=== PATIENT | male | born 1980 | race Caucasian/White ===

== ENCOUNTER 2016-11-06 02:56 | Emergency (ER) | payer OTHER ==
[~2016-11-06] VITALS: Ht 175.3 cm; Wt 179.3 kg
[~2016-11-06 02:56] MED LIST: CEFU500T PO; IBUP-1827 PO; TRAM50TA2 PO
[2016-11-06 02:57] VITALS: BP 188/113; PULSE 91; RESP 16; O2SAT 98
--- NOTE | 2016-11-06 03:05 | ED.REPORT ---
HPI-General Illness Date of Service November 06, 2016 ED Provider: Claudio Nunez MD A 36 year old male with a history of asthma, smoking and episodes of similar symptoms presents to the ED due to a syncopal episode. The pt was eating at home at approximately 00:00 when he took a bite and suddenly felt that he could not breathe. He then experienced a syncopal episode and woke up on the floor with an abrasion on his forehead. The pt has experienced similar symptoms before when he was not eating. He also admits to a persistent cough for several months but denies shortness of breath with exertion. Nursing Notes Stated Complaint: DIFFICULTY BREATHING Chief Complaint: Neuro Symptoms/ Deficits Nursing Notes Reviewed: Yes Allergies: Coded Allergies: amoxicillin (Verified Allergy, Unknown, 03/01/14) ampicillin (Verified Allergy, Unknown, 03/01/14) Scheduled Cefuroxime Axetil (Ceftin) 500 Mg Tablet 500 MG PO BID Scheduled PRN Ibuprofen (Ibuprofen) 600 Mg Tablet 600 MG PO QID PRN PRN For Pain Ondansetron ODT (Ondansetron ODT) 8 Mg Tab.rapdis 8 MG PO QID PRN PRN For Nausea Tramadol (Tramadol) 50 Mg Tablet 100 MG PO Q6H PRN PRN For Pain General Time Seen by MD: 03:04 Chief Complaint Other (Syncope) Hx Obtained From: Patient Arrived By: Walk-in Sudden in Onset?: Yes Onset Occurred: 1 - 4 hours ago Recent Healthcare: No recent hospitalization, Recent doctor visit Similar Sx Previous: Yes Past Medical History Past Medical History Reports: Asthma Past Surgical History none reported Smoking History Current Every Day Smoker Social History Alcohol Use: Denies alcohol use Drug Use: THC Other Social History: Good social support, Occupation lives with and kids, not employed currently Ambulatory Status Independent Review of Systems difficulty breathing Full Review of Systems Respiratory: Reports: Prod cough, clear, Denies: Dyspnea on exertion Cardiovascular: Denies: Chest pain GI: Denies: Abdominal pain Skin: Denies Rash Neurologic: Reports: Syncope Complete sys rev & neg: except as marked. Physical Exam Vital Signs Vital Signs Date Time Temp Pulse Resp B/P Pulse Ox O2 Delivery O2 Flow Rate FiO2 11/06/16 04:58 84 16 148/76 95 Room Air 11/06/16 04:46 11/06/16 02:57 36.9 91 16 188/113 98 Room Air Initial VS: Reviewed General/Constitutional: Awake, Alert Appearance / Presentation: Positive: Obese, morbidly Head / Eyes: Normocephalic, PERRL, EOMI abrasion on right frontal forehead ENT: Atraumatic, Airway patent, Mucous membranes moist Neck: Atraumatic, Supple, Full range of motion Respiratory / Chest: Atraumatic, Breath sounds NL, Breath sounds = bilat, No respiratory distress Cardiovascular: Heart rate NL, Regular rhythm, Heart sounds NL Abdomen: Atraumatic, Soft, Non-tender Back: Atraumatic, Full range of motion Upper Extremities Upper Extremity / MS: Atraumatic, Full range of motion Lower Extremity / Pelvis / MS: Atraumatic, Full range of motion Skin: Color NL, No rash, Warm, Dry Neurologic: Oriented X3, Speech NL, No motor deficits, No sensory deficits Psychiatric: Affect NL, Mood NL Interpretation & Diagnostics Interpretation & Diagnostics: CT Pulmonary Angiogram: CONCLUSION: Suboptimal opacification of the pulmonary arterial system. No CT evidence of central PE. Lab Results Interpretation Result Diagram: 11/06/16 0320 11/06/16 0320 Test 11/06/16 03:20 White Blood Count 11.3th/mm3 (3.8-10.1) Red Blood Count 4.57mil/mm3 (4.40-5.80) Hemoglobin 13.2g/dL (13.8-17.2) Hematocrit 39.4% (41.0-50.0) Mean Corpuscular Volume 86.2fL (81-100) Mean Corpuscular Hemoglobin 28.9pg (27.0-35.0) Mean Corpuscular Hemoglobin Concent 33.5% (32.0-37.0) Red Cell Distribution Width 13.8% (12.3-15.4) Platelet Count 193bil/L (150-400) Neutrophils (%) (Auto) 68.9% (40-74) Lymphocytes (%) (Auto) 23.0% (14-46) Monocytes (%) (Auto) 6.7% (4-12) Eosinophils (%) (Auto) 0.6% (0-5) Basophils (%) (Auto) 0.4% (0-3) Prothrombin Time 10.6sec (8.1-12.5) Prothromb Time International Ratio 0.99ratio Activated Partial Thromboplast Time 25.1sec (22.8-33.0) Sodium Level 140mEq/L (134-144) Potassium Level 3.9mEq/L (3.5-5.2) Chloride Level 101mEq/L (97-108) Carbon Dioxide Level 24mmol/L (18-29) Blood Urea Nitrogen 16mg/dL (6-20) Creatinine 0.74mg/dL (0.76-1.27) Estimat Glomerular Filtration Rate 127mL/min (>59) Glucose Level 103mg/dL (60-99) Calcium Level 9.1mg/dL (8.5-10.1) Magnesium Level 2.0mg/dL (1.6-2.6) Total Bilirubin 0.4mg/dL (0.0-1.2) Aspartate Amino Transf (AST/SGOT) 26U/L (0-50) Alanine Aminotransferase (ALT/SGPT) 39U/L (0-44) Alkaline Phosphatase 48U/L (25-150) Troponin T 0.010ug/L (0.0-0.011) Pro-B-Type Natriuretic Peptide 116.8pg/mL (0-86) Total Protein 7.0g/dL (6.4-8.4) Albumin 4.1g/dL (3.4-5.0) ECG Interpretation ECG Interpretation: normal sinus rhythm with a rate of 81 incomplete RBBB Time: 03:15 Interpreted by: ED physician X-Ray Chest Interpretation Chest Xray Interpretation: no acute findings Interpretation / Wet Read by: Wet read ED physician CT Head Interpretation IMPRESSION: No CT evidence of hemorrhage, mass, or acute infarct. Interpretation / Wet Read by: Interpret - Radiologist CT C-Spine Interpretation CONCLUSION: No CT evidence of fracture or dislocation. Interpretation / Wet Read by: Interpret - Radiologist Re-Eval/Medical Decision Med Decision/Clinical Course Syncopal episode of unclear etiology. May have been a choking episode, but he has had several similar episodes without explanation the past. He said he felt short of breath and this prompted a CT angiogram, which does not show a large scale embolus. Cannot exclude secondary and tertiary emboli, but a large scale syncope producing embolus is not found. EKG is unremarkable and labs are otherwise reassuring. Discharged home in stable condition. CT of head and neck are negative. First date applied to abrasion on the right forehead. Source of Hx: Old records Time of Eval: 05:28 Patient Status: Condition improved Re-Evaluation/Progress Note: Pt rechecked, who is resting comfortably. The diagnosis and plan for discharge are discussed. The pt understands and agrees with the plan. All questions are addressed at this time. Counseled Regarding: Diagnosis, Lab results, Need for follow-up, When/why to return to ED Discharge & Departure Primary Impression: Syncope Additional Impressions: Blunt head injury Contusion of forehead Disposition: Home Discharge Condition All VS Reviewed: Yes Condition: Stable Patient Instructions: Head Injury (ED), Syncope (ED) Additional Instructions: There is no evidence of clot in your lung. Your CT of head and neck are negative for acute injury. Your labs are also reassuring. Follow-up with your doctor in the office. Return for any recurrent episodes of fainting or other new symptoms of concern. Call your doctor today for follow-up in this next week. Referrals: Shahriar Westbrook MD (PCP) Giannaibe Attestation Portions of this note were transcribed by Gia Sena. I, Dr. Nunez personally performed the history, physical exam and medical decision-making; I reviewed and confirmed the accuracy of the information in the transcribed note. Signed by: Amparo Dolan, 11/06/16 and 0529. copies to: Shahriar Westbrook MD, Christopher W MD November 06, 2016 03:05 GAI SENA November 06, 2016 03:41
[2016-11-06] MEDS ORDERED: 0.9% Sodium Chloride 1,000 ML IV ONE (03:09)
[2016-11-06 03:33] LABS: BASOPHILS % (AUTO) 0.4 % (0-3); EOSINOPHILS % (AUTO) 0.6 % (0-5); MONOCYTES % (AUTO) 6.7 % (4-12); Mean Corpuscular Hemoglobin 28.9 pg (27.0-35.0); Mean Corpuscular Volume 86.2 fL (81-100); NEUTROPHILS % (AUTO) 68.9 % (40-74); Platelet Count 193 bil/L (150-400)
[2016-11-06 03:46] LABS: INR 0.99 ratio
[2016-11-06 04:03] LABS: TROPONIN T 0.01 ug/L (0.0-0.011)
[2016-11-06 04:46] VITALS: BP 138/69; PULSE 78; RESP 16; O2SAT 97
[2016-11-06 04:58] VITALS: BP 148/76; PULSE 84; RESP 16; O2SAT 95
[2016-11-06] MEDS ORDERED: ONDA8TAB10 PO (05:26)
--- NOTE | 2016-11-06 08:18 | DRSVH ---
PROCEDURE: X-RAY CHEST ONE VIEW, PORTABLE ([id number]) INDICATIONS: syncope, SHORT OF BREATH TECHNIQUE: One view of the chest was acquired. COMPARISON: None. FINDINGS: Surgical changes and devices: None. Lungs and pleura: No pleural effusions or pneumothorax. Lungs are clear. Mediastinum: Mediastinal contours appear normal. Heart size is normal. Bones and chest wall: No suspicious bony lesions. Overlying soft tissues appear unremarkable. IMPRESSION: No acute disease Dictated by: Mike Coles M.D. on 11/06/2016 at 8:16 Approved by: Mike Coles M.D. on 11/06/2016 at 8:16
--- NOTE | 2016-11-06 09:04 | DRSVH ---
PROCEDURE: CT ANGIO CHEST PULMONARY EMBOLISM ([id number]) INDICATIONS: fall, syncope frontal head injury TECHNIQUE: After the administration of intravenous contrast, 2 mm thick sections acquired from the pulmonary api bernie to the posterior costophrenic angles. 3-dimensional maximum intensity projection (MIP) coronal a nd sagittal reformats were then acquired through the thorax. For radiation dose reduction, the follo wing was used: automated exposure control, adjustment of mA and/or kV according to patient size. COMPARISON: None. FINDINGS: Image quality: Limited by patient body habitus and suboptimal contrast opacification of the segmental and subsegmental pulmonary arteries. Pulmonary arteries: Pulmonary arteries are normal in size, and demonstrate no intraluminal filling d efects to suggest central pulmonary embolism. Lungs and pleura: Lungs are clear. No pleural effusions or pneumothorax. Central and peripheral ai rways are patent. Mediastinum: Heart size is normal, without pericardial effusion. No mediastinal or hilar adenopathy . Thoracic aorta is normal in caliber and enhancement. Esophagus is normal in caliber, without hiat al hernia. Bones and chest wall: No suspicious bony lesions. Ribs and thoracic spine appear intact throughout. Spine degenerative disc disease and facet arthropathy. Thyroid gland is within normal limits where visualized. No axillary or supraclavicular adenopathy. Abdomen: Gallstones noted in the gallbladder. Visualized upper abdominal solid organs appear normal in the early arterial phase of enhancement. IMPRESSION: 1. No large central pulmonary embolus. Please note pulmonary emboli involving the segmental and subse gmental pulmonary arteries cannot be completely excluded secondary to suboptimal opacification. 2. Cholelithiasis. Final interpretation is concordant with preliminary interpretation. Dictated by: Lashanda Calderon MD, PhD on 11/06/2016 at 8:59 Approved by: Lashanda Calderon MD, PhD on 11/06/2016 at 9:02
--- NOTE | 2016-11-06 09:06 | DRSVH ---
PROCEDURE: CT BRAIN WITHOUT CONTRAST ([id number]) INDICATIONS: fall, syncope frontal head injury TECHNIQUE: Noncontrast 4.5 mm thick angled axial sections acquired from the foramen magnum to the vertex, with c oronal reformats. COMPARISON: None. FINDINGS: Image quality: Excellent. CSF spaces: Basal cisterns are patent. No extra-axial fluid collections. Ventricles are normal in size and shape. Brain: No midline shift. No intracranial masses or hemorrhage. [place]-white matter interface is norm al. Skull and face: Calvarium and visualized facial bones are intact, without suspicious lesions. Small right occipital scalp hematoma is noted. Sinuses: Mucosal thickening noted in the visualized maxillary sinuses bilaterally. The mastoids are c lear. IMPRESSION: No acute intracranial disease process. Final interpretation is concordant with preliminary interpretation. Dictated by: Lashanda Calderon MD, PhD on 11/06/2016 at 9:02 Approved by: Lashanda Calderon MD, PhD on 11/06/2016 at 9:04
--- NOTE | 2016-11-06 09:10 | DRSVH ---
PROCEDURE: CT CERVICAL SPINE WITHOUT CONTRAST ([id number]) INDICATIONS: fall, syncope frontal head injury TECHNIQUE: Noncontrast 3 mm thick sections acquired from the skull base to the T4 level. Sagittal and coronal r eformats were then constructed. For radiation dose reduction, the following was used: automated exp osure control, adjustment of mA and/or kV according to patient size. COMPARISON: [facility], CT, CT BRAIN WO CON, 11/06/2016, 4:37. FINDINGS: Image quality: Limited by patient motion artifact and patient body habitus. Bones: No fractures or dislocations. Visualized superior ribs are intact. Multilevel degenerative d isc disease and facet arthropathy are noted. Soft tissues: Prevertebral soft tissues are normal in thickness. No paravertebral hematomas. No ap ical pneumothoraces. IMPRESSION: No fracture within the limitations caused by motion artifact and patient body habitus. N o acute osseous lesion within limitations caused by motion artifact and patient body habitus. If symp toms and/or clinical suspicion for pathology persists, evaluation with MRI may be helpful for further assessment. Dictated by: Lashanda Calderon MD, PhD on 11/06/2016 at 9:04 Approved by: Lashanda Calderon MD, PhD on 11/06/2016 at 9:08
== END 2016-11-06 05:41 | disposition home or self-care (01) ==
LOC: SED 02:56
DX: R55 Syncope and collapse (principal); S00.83XA Contusion of other part of head, initial encounter; W01.198A Fall on same level from slipping, tripping and stumbling with subsequent striking against other object, initial encounter; Y93.89 Activity, other specified; Y92.009 Unspecified place in unspecified non-institutional (private) residence as the place of occurrence of the external cause; Y99.8 Other external cause status; R05 Cough; F17.200 Nicotine dependence, unspecified, uncomplicated; J45.909 Unspecified asthma, uncomplicated; Z88.0 Allergy status to penicillin; Z88.1 Allergy status to other antibiotic agents
CPT/HCPCS: 36415; 70450; 71010; 71275; 72125; 80053; 83735; 83880; 84484; 85025; 85610; 85730; 87070; 87205; 93005; 96361; 96374; 99285; J1885; J7030; Q9967